=== PATIENT | male | born 1945 | race Caucasian/White ===

== ENCOUNTER → 2019-11-30 | Day surgery (SDC) | payer BC ==
[~2019-11-30] MED LIST: Ketamine 200 MG/20 ML MDV IV ONE; Lactated Ringers 1,000 ML IV SCH; Propofol 200 MG/20 ML SDV IV ONE; fentaNYL 100 MCG/2 ML SDV IV ONE
[2019-11-30 09:09] VITALS: BP 169/82; PULSE 57
--- NOTE | 2019-11-30 11:43 | OR ---
DATE OF OPERATION: 11/30/2019 PREOPERATIVE DIAGNOSIS: HISTORY OF POLYPS. POSTOPERATIVE DIAGNOSIS: HISTORY OF POLYPS. SURGEON: Toni Campos MD PROCEDURE: FULL-LENGTH COLONOSCOPY WITH FORCEPS POLYP BIOPSY X3. ANESTHESIA: MAC. COMPLICATIONS: None. SPECIMEN: Biopsies x3, large villous lesion near hepatic flexure. FINDINGS: 1. Full-length colonoscopy. 2. Mild sigmoid diverticulosis. 3. Large villous lesion just past the hepatic flexure. RECOMMENDATIONS: The patient will need expert consultation given the size of this lesion for attempt at endoscopic removal pending path reports. INDICATIONS: The patient had prior polyps in the past. 8 years ago, he had a large tubulovillous lesion removed from the rectum. A 3-year followup was negative. He is due for a routine 5-year followup scope. DESCRIPTION OF PROCEDURE: The patient was prepped and draped, placed in the left lateral decubitus position. A lubricated Olympus colonoscope was inserted, and with ease advanced to the cecum. Direct visualization of the ileocecal valve and appendiceal orifice was accomplished. The bowel prep was excellent. Upon withdrawal of the scope, the cecum and ascending colon appeared benign. Just past the hepatic flexure on the transverse colon side, the patient had a larger flat villous lesion occupying a large percentage of the haustral fold. This was tucked in and wrapped around it. It is pretty large in size and endoscopic removal was felt to be unsafe in [place]. We elected to do 3 biopsies of this lesion. The rest of the transverse and descending areas were unremarkable. The patient does have scattered diverticula in the sigmoid colon, very minimal in severity. No other polyps, masses, ulceration, or bleeding sites were seen. No vascular abnormalities or signs of colitis. The rectal vault was benign. Retroflexion of the scope in the rectum showed no anal lesions. Air was suctioned. Scope removed without complication. OREN/RADHA /[id number]
== END ==
LOC: CC.SDS 06:56
PROVIDERS: ATTEND Family Medicine
DX: Z12.11 Encounter for screening for malignant neoplasm of colon (principal); D12.3 Benign neoplasm of transverse colon; K57.30 Diverticulosis of large intestine without perforation or abscess without bleeding; E78.5 Hyperlipidemia, unspecified; I10 Essential (primary) hypertension; E11.9 Type 2 diabetes mellitus without complications; N40.0 Benign prostatic hyperplasia without lower urinary tract symptoms; R79.89 Other specified abnormal findings of blood chemistry; Z79.82 Long term (current) use of aspirin; Z87.891 Personal history of nicotine dependence; Z95.1 Presence of aortocoronary bypass graft; Z88.5 Allergy status to narcotic agent; Z79.899 Other long term (current) drug therapy
CPT/HCPCS: 93005; J2704; J3010; J7120

== ENCOUNTER 2020-04-08 08:59 | Emergency (ER) | payer BC ==
[2020-04-08 09:09] VITALS: BP 158/89; PULSE 95
[2020-04-08 09:36] LABS: CHLORIDE,CL 99 mEq/L (98-106); SODIUM,NA 136 mEq/L (136-145)
[2020-04-08] MEDS: Magnesium Citrate Solution 296 ML Bottle PO ONE (10:51)
[2020-04-08] MEDS: Ketorolac 30 MG/ML SDV IVPUSH ONE (10:51)
--- NOTE | 2020-04-08 10:59 | EDM.PDOC ---
<Barbara Ryan - Last Filed: 04/08/20 13:12> ED HPI GENERAL MEDICAL PROBLEM - General Chief Complaint: Abdominal Pain Stated Complaint: ABD PAIN Time Seen by Provider: 04/08/20 09:30 - Related Data Allergies Allergy/AdvReac Type Severity Reaction Status Date / Time codeine Allergy Nausea Verified 04/08/20 09:04 Home Meds: Home Meds Aspirin 81 mg PO DAILY 01/03/15 [History] Lutein/Minerals/Vit A,C & E [Ocuvite] 1 tab PO DAILY 01/03/15 [History] Simvastatin [Zocor] 40 mg PO DAILY 01/03/15 [History] Ubidecarenone [Co Q-10] 10 mg PO DAILY 01/03/15 [History] Metoprolol Tartrate 50 mg PO BID 03/18/15 [History] Multivit-Min/FA/Lycopen/Lutein [Centrum Silver Men Tablet] 1 each PO DAILY 11/30/19 [History] Course - Re-Assessments/Exams Free Text/Narrative Re-Assessment/Exam: 04/08/20 15:04 Patient did have recurring pain. Was given IV Fentanyl which did help. [place] [facility] [place] and need for surgical intervention. Does agree to accept the patient for cholecystectomy. Risks and benefits discussed with patient. risks of transfer include vehicle cr andrew, worsening status and possible . Benefits of transfer include surgical intervention. Risks of non transfer include worsening status and possible . Benefits of non transfer include care close to home. Patient and agree to transfer. Departure - Departure Time of Disposition: 15:09 Disposition: DC/Tfer to Acute Hospital 02 Condition: Fair Clinical Impression: Cholecystitis - Discharge Information *PRESCRIPTION DRUG MONITORING PROGRAM REVIEWED*: No *COPY OF PRESCRIPTION DRUG MONITORING REPORT IN PATIENT EDGARD: No Referrals: Toni Campos MD [Primary Care Provider] - Forms: ED Department Discharge Additional Instructions: [place] [facility] [place] Dr. Mckeon. <Diandra Segal - Last Filed: 04/08/20 20:00> ED HPI GENERAL MEDICAL PROBLEM - General Source of Information: Reports: Patient History Limitations: Reports: No Limitations - History of Present Illness INITIAL COMMENTS - FREE TEXT/NARRATIVE: Amol is a 74 yo male with hx of right colectomy ~ 2 months ago, who presents to the ED with c/o abdominal pain. He reports pain has been present for the last 3 days, but seemed to worsen overnight. He reports at times pain is 10/10. Reports he has been passing some gas, but minimal. Has been belching. Reports his last bowel movement was 3 days ago and it was firm at that time. He did try Miralax x2 as well as prune juice without results. Reports pain is worse to right side. He reports he has not been able to eat/drink since yesterday morning, when he last ate oatmeal. He denies any fever/chills, vomiting, diarrhea, chest pain, shortness of breath. He does report things have been going well since his colectomy. Bowel movements have been normal. Onset Date: 04/05/20 Duration: Getting Worse Location: Reports: Abdomen Quality: Reports: Sharp Severity: Severe Improves with: Reports: None Worsens with: Reports: Movement Associated Symptoms: Reports: Loss of Appetite. Denies: Confusion, Chest Pain, Cough, cough w sputum, Diaphoresis, Fever/Chills, Headaches, Malaise, Nausea/Vomiting, Rash, Seizure, Shortness of Breath, Syncope, Weakness Right Lower Abdomen Pain Score (Numeric/FACES): 10 Past Medical History HEENT History: Reports: Hard of Hearing, Impaired Vision, Other (See Below) Other HEENT History: "swelling in ear that comes and goes, puts drops in" Cardiovascular History: Reports: Bypass, High Cholesterol, Hypertension Gastrointestinal History: Reports: GERD Neurological History: Reports: Concussion - Past Surgical History HEENT Surgical History: Reports: None Cardiovascular Surgical History: Reports: Coronary Artery Bypass GI Surgical History: Reports: Colonoscopy, Polypectomy, Other (See Below) Other GI Surgeries/Procedures: bowel resection- took R) half out Neurological Surgical History: Reports: None Musculoskeletal Surgical History: Reports: Shoulder Replacement, Shoulder Surgery Other Musculoskeletal Surgeries/Procedures:: right shoulder Social & Family History - Family History Family Medical History: No Pertinent Family History - Tobacco Use Tobacco Use Status *Q: Never Tobacco User Second Hand Smoke Exposure: No - Caffeine Use Caffeine Use: Reports: None - Recreational Drug Use Recreational Drug Use: No ED ROS GENERAL - Review of Systems Review Of Systems: Comprehensive ROS is negative, except as noted in HPI. Constitutional: Reports: Decreased Appetite. Denies: Fever, Chills, Malaise, Weakness, Fatigue HEENT: Reports: No Symptoms Respiratory: Reports: No Symptoms Cardiovascular: Reports: No Symptoms Endocrine: Reports: No Symptoms GI/Abdominal: Reports: Abdominal Pain, Constipation, Decreased Appetite, Distension. Denies: Black Stool, Bloody Stool, Diarrhea, Flatus, Nausea, Vomiting : Reports: No Symptoms Musculoskeletal: Reports: No Symptoms Skin: Reports: No Symptoms Neurological: Reports: No Symptoms Psychiatric: Reports: No Symptoms Hematologic/Lymphatic: Reports: No Symptoms Immunologic: Reports: No Symptoms ED EXAM, GI/ABD - Physical Exam Exam: See Below Exam Limited By: No Limitations General Appearance: Alert, WD/WN, Mild Distress Throat/Mouth: Normal Inspection, Normal Lips, Normal Teeth, Normal Gums, Normal Oropharynx, Normal Voice, No Airway Compromise Head: Atraumatic, Normocephalic Neck: Normal Inspection, Supple, Non-Tender, Full Range of Motion Respiratory/Chest: No Respiratory Distress, Lungs Clear, Normal Breath Sounds, No Accessory Muscle Use, Chest Non-Tender Cardiovascular: Normal Peripheral Pulses, Regular Rate, Rhythm, No Edema, No Gallop, No JVD, No Murmur, No Rub GI/Abdominal Exam: Soft, Distended, Tender (RLQ & RUQ). No: Guarding, Rigid, Rebound Back Exam: Normal Inspection, Full Range of Motion. No: CVA Tenderness (L), CVA Tenderness (R) Extremities: Normal Inspection, Normal Range of Motion, Non-Tender, Normal Capillary Refill, No Pedal Edema Neurological: Alert, Oriented, CN II-XII Intact, Normal Cognition, Normal Gait, Normal Reflexes, No Motor/Sensory Deficits Psychiatric: Normal Affect, Normal Mood Skin Exam: Warm, Dry, Intact, Normal Color, No Rash Lymphatic: No Adenopathy Course - Vital Signs Last Recorded V/S: Last Vital Signs Temp 98.6 F 04/08/20 14:47 Pulse 95 04/08/20 09:08 Resp 20 04/08/20 09:08 BP 158/89 H 04/08/20 09:08 Pulse Ox 93 L 04/08/20 09:08 - Orders/Labs/Meds Orders: Active Orders 24 hr Category Date Time Status Abdomen 2V AP Flat Upright [CR] Stat Exams 04/08/20 09:29 Taken Abdomen Ltd [US] Stat Exams 02/23/21 12:14 Taken Abdomen Pelvis w Cont [CT] Stat Exams 04/08/20 10:37 Taken Labs: Laboratory Tests 04/08/20 04/08/20 04/08/20 Range/Units 09:20 09:20 09:23 WBC 13.4 H (5.0-10.0) 10^3/uL RBC 4.72 (4.50-6.00) 10^6/uL Hgb 15.8 (14.0-18.0) g/dL Hct 46.0 (40.0-54.0) % MCV 97.5 H (82.0-94.0) fL MCH 33.5 H (27.0-32.0) pg MCHC 34.3 (33.0-38.0) g/dL RDW Coeff of Korina 14.1 (11.0-15.0) % Plt Count 135 L (150-400) 10^3/uL Neut % (Auto) 78.8 (35-85) % Lymph % (Auto) 9.9 L (10-55) % Clinch % (Auto) 10.5 (0-16) % Eos % (Auto) 0.7 (0-5) % Baso % (Auto) 0.1 (0-3) % Neut # (Auto) 10.52 H (1.80-7.00) 10^3/uL Lymph # (Auto) 1.32 (1.00-4.80) 10^3/uL Clinch # (Auto) 1.40 H (0.00-0.80) 10^3/uL Eos # (Auto) 0.09 (0.00-0.45) 10^3/uL Baso # (Auto) 0.02 10^3/uL Sodium 136 (136-145) mEq/L Potassium 4.6 (3.5-5.0) mEq/L Chloride 99 (98-106) mEq/L Carbon Dioxide 27 (21-32) mmol/L BUN 14 (7-18) mg/dL Creatinine 1.1 (0.7-1.3) mg/dL Est Cr Clr Drug Dosing 61.76 mL/min Estimated GFR (MDRD) > 60 (>=60) mL/min Glucose 159 H D (75-99) mg/dL Calcium 9.1 (8.4-10.1) mg/dL Total Bilirubin 1.7 H (0.0-1.0) mg/dL AST 19 (15-37) U/L ALT 26 (12-78) U/L Alkaline Phosphatase 89 (46-116) U/L C-Reactive Protein 13.4 H (0.2-0.8) mg/dL Total Protein 7.7 (6.4-8.2) g/dL Albumin 3.6 (3.4-5.0) g/dL Amylase 20 L (25-115) U/L Lipase 37 L (73-393) U/L Urine Color Dark yellow (YELLOW) Urine Appearance Clear (CLEAR) Urine pH 5.5 (4.5-8.0) Ur Specific [place] >= 1.030 H (1.003-1.020) Urine Protein 100 H (NEGATIVE) mg/dL Urine Glucose (UA) Negative (NEGATIVE) mg/dL Urine Ketones 80 H (NEGATIVE) mg/dL Urine Occult Blood Negative (NEGATIVE) Urine Nitrite Negative (NEGATIVE) Urine Bilirubin Small H (NEGATIVE) Urine Urobilinogen 0.2 (0.2-1.0) EU/dL Ur Leukocyte Esterase Negative (NEGATIVE) Urine RBC 0-5 (0-5) /HPF Urine WBC 0-5 (0-5) /HPF Meds: Medications Discontinued Medications Generic Name Dose Route Start Last Admin Trade Name Francisco PRN Reason Stop Dose Admin Fentanyl 25 mcg 04/08/20 13:33 04/08/20 13:39 Sublimaze IVPUSH 04/08/20 13:34 25 mcg ONETIME STA Administration Fentanyl 25 mcg 04/08/20 15:18 04/08/20 15:24 Fentanyl IVPUSH 04/08/20 15:19 25 mcg ONETIME ONE Administration Lactated Ringer's 500 mls @ 500 mls/hr 04/08/20 11:06 04/08/20 11:22 Ringers, Lactated IV 04/08/20 12:05 500 mls/hr .BOLUS ONE Administration Lactated Ringer's Confirm 04/08/20 11:35 04/08/20 11:23 Ringers, Lactated Administered 04/08/20 11:36 Not Given Dose 1,000 mls @ as directed .ROUTE .STK-MED ONE Ampicillin Sodium/Sulbactam 100 mls @ 200 mls/hr 04/08/20 12:16 04/08/20 12:19 Sodium 3 gm/ Sodium Chloride IV 04/08/20 12:17 200 mls/hr STAT ONE Administration Iopamidol 100 ml 04/08/20 10:54 04/08/20 11:40 Isovue-370 (76%) IVPUSH 04/08/20 10:55 100 ml ONETIME ONE Administration Ketorolac Tromethamine 30 mg 04/08/20 10:40 04/08/20 10:51 Toradol IVPUSH 04/08/20 10:41 30 mg ONETIME ONE Administration Magnesium Citrate 150 ml 04/08/20 10:24 04/08/20 10:51 Citrate Of Magnesia PO 04/08/20 10:25 Not Given ONETIME ONE Sepsis Event Note (ED) - Evaluation Sepsis Screening Result: No Definite Risk - Focused Exam Vital Signs: Vital Signs Temp Pulse Resp BP Pulse Ox 04/08/20 14:47 98.6 F 04/08/20 09:08 99.2 F 95 20 158/89 H 93 L - Problem List & Annotations (1) Cholecystitis SNOMED Code(s): 15602704 Code(s): K81.9 - CHOLECYSTITIS, UNSPECIFIED Status: Acute - My Orders Last 24 Hours: My Active Orders 04/08/20 09:29 Abdomen 2V AP Flat Upright [CR] Stat 04/08/20 10:37 Abdomen Pelvis w Cont [CT] Stat 04/08/20 12:14 Abdomen Ltd [US] Stat - Assessment/Plan Last 24 Hours: My Active Orders 04/08/20 09:29 Abdomen 2V AP Flat Upright [CR] Stat 04/08/20 10:37 Abdomen Pelvis w Cont [CT] Stat 04/08/20 12:14 Abdomen Ltd [US] Stat Assessment:: Cholecystitis Plan: As above. Noted by my colleague, who resumed care of patient.
[2020-04-08] MEDS: Lactated Ringers 500 ML IV ONE (11:22)
[2020-04-08] MEDS: Lactated Ringers 1,000 ML ONE (11:23)
[2020-04-08] MEDS: Iopamidol 755 Mg/ML 100 ML Bottle IVPUSH ONE (11:40)
[2020-04-08] MEDS: Ampicillin/Sulbactam Na 3 GM in Sodium Chloride 0.9% 100 ML IV ONE (12:19)
[2020-04-08] MEDS: fentaNYL 100 MCG/2 ML SDV IVPUSH STA (13:39)
[2020-04-08] MEDS: fentaNYL 50 MCG/ML SDV IVPUSH ONE (15:24)
== END 2020-04-08 15:30 | disposition critical access hospital (66) ==
LOC: CC.ED 08:59
DX: K81.9 Cholecystitis, unspecified (principal); I10 Essential (primary) hypertension; E78.00 Pure hypercholesterolemia, unspecified; Z88.5 Allergy status to narcotic agent; Z79.82 Long term (current) use of aspirin; Z79.899 Other long term (current) drug therapy
CPT/HCPCS: 36415; 74019; 74177; 76705; 80053; 81001; 82150; 83690; 85025; 86140; 96365; 96375; 96376; 99285-25; J0295; J1885; J3010; J7120; Q9967

== ENCOUNTER 2020-05-30 21:03 | Observation (INO) | payer BC ==
[2020-05-30] MEDS ORDERED: cloNIDine 0.1 MG Tab PO ONE (21:36)
--- NOTE | 2020-05-30 21:44 | EDM.PDOC ---
ED HPI GENERAL MEDICAL PROBLEM - General Chief Complaint: General Stated Complaint: high BP Time Seen by Provider: 05/30/20 21:21 Source of Information: Reports: Patient History Limitations: Reports: No Limitations - History of Present Illness INITIAL COMMENTS - FREE TEXT/NARRATIVE: Amol is a 74 year old male who presents to ER with concerns of high blood pressure today. States has been having issues with his blood pressure over the last couple of months. Has been on metoprolol for quite some time but had Norvasc added in the last couple of months and then increased by cardiology. He relates then had issues with increased swelling in his legs so they stopped the Norvasc and put him on Lisinopril 10 mg daily. Relates that his blood pressure has not "been normal" but running around 150/90 or so. He started noting a headache and upper back pain this afternoon while in [place]. Did take Tylenol around 1630 which did help. Took his blood pressure when he got home and it wouldn't register initially and when did, was 220 systolic. He took his usual dose of metoprolol this evening but his blood pressure has not improved so was "worried about what could happen". Denies any chest pain or shortness of breath. Headache and back pain has improved. No nausea/vomiting. Does admit that since his gallbladder surgery, he does get "gas pains at times". No fe vers. No urinary concerns. Onset: Today Duration: Hour(s):, Improving Location: Reports: Head, Neck, Back Quality: Reports: Ache Severity: Mild Improves with: Reports: Medication Associated Symptoms: Denies: Confusion, Chest Pain, Cough, Fever/Chills, Loss of Appetite, Malaise, Nausea/Vomiting, Shortness of Breath Treatments POT PULLER: Reports: Acetaminophen Generalized Pain Score (Numeric/FACES): 3 - Related Data Allergies Allergy/AdvReac Type Severity Reaction Status Date / Time codeine Allergy Nausea Verified 05/30/20 21:08 Home Meds: Home Meds Aspirin 81 mg PO DAILY 01/03/15 [History] Lutein/Minerals/Vit A,C & E [Ocuvite] 1 tab PO DAILY 01/03/15 [History] Simvastatin [Zocor] 40 mg PO DAILY 01/03/15 [History] Ubidecarenone [Co Q-10] 10 mg PO DAILY 01/03/15 [History] Metoprolol Tartrate 50 mg PO BID 03/18/15 [History] Multivit-Min/FA/Lycopen/Lutein [Centrum Silver Men Tablet] 1 each PO DAILY 11/30/19 [History] Tamsulosin HCl 0.4 mg PO BEDTIME 05/30/20 [History] lisinopriL [Lisinopril] 10 mg PO DAILY 05/30/20 [History] Past Medical History HEENT History: Reports: Hard of Hearing, Impaired Vision, Other (See Below) Other HEENT History: "swelling in ear that comes and goes, puts drops in" Cardiovascular History: Reports: Bypass, High Cholesterol, Hypertension Gastrointestinal History: Reports: GERD Neurological History: Reports: Concussion - Infectious Disease History Infectious Disease History: Reports: Chicken Pox - Past Surgical History HEENT Surgical History: Reports: None Cardiovascular Surgical History: Reports: Coronary Artery Bypass GI Surgical History: Reports: Colonoscopy, Polypectomy, Other (See Below) Other GI Surgeries/Procedures: bowel resection- took R) half out Neurological Surgical History: Reports: None Musculoskeletal Surgical History: Reports: Shoulder Replacement, Shoulder Surgery Other Musculoskeletal Surgeries/Procedures:: right shoulder Social & Family History - Family History Family Medical History: No Pertinent Family History - Tobacco Use Tobacco Use Status *Q: Former Tobacco User Used Tobacco, but Quit: Yes Month/Year Tobacco Last Used: 25 years ago - Caffeine Use Caffeine Use: Reports: Coffee - Recreational Drug Use Recreational Drug Use: No ED ROS GENERAL - Review of Systems Review Of Systems: See Below Constitutional: Denies: Fever, Chills, Malaise, Weakness, Decreased Appetite HEENT: Denies: Ear Pain, Throat Pain, Vertigo, Vision Change Respiratory: Denies: Shortness of Breath, Cough Cardiovascular: Reports: Edema. Denies: Chest Pain, Lightheadedness Endocrine: Denies: Fatigue GI/Abdominal: Denies: Abdominal Pain, Nausea, Vomiting : Reports: No Symptoms Musculoskeletal: Reports: Neck Pain, Back Pain Skin: Reports: No Symptoms Neurological: Reports: Headache ED EXAM, GENERAL - Physical Exam Exam: See Below Exam Limited By: No Limitations General Appearance: Alert, WD/WN, No Apparent Distress Ears: Normal External Exam, Normal TMs Nose: Normal Inspection, Normal Mucosa, No Blood Throat/Mouth: Normal Inspection, Normal Oropharynx Head: Normocephalic Neck: Normal Inspection, Supple, Non-Tender Respiratory/Chest: No Respiratory Distress, Lungs Clear, Normal Breath Sounds Cardiovascular: Regular Rate, Rhythm GI/Abdominal: Normal Bowel Sounds, Soft, Non-Tender Extremities: Normal Inspection, Pedal Edema (1+) Neurological: Alert, Oriented Skin Exam: Warm, Dry Course - Vital Signs Last Recorded V/S: Last Vital Signs Temp 97.4 F 05/30/20 21:04 Pulse 71 05/30/20 21:27 Resp 18 05/30/20 21:27 BP 204/111 H 05/30/20 21:44 Pulse Ox 99 05/30/20 21:27 - Orders/Labs/Meds Orders: Active Orders 24 hr Category Date Time Status Patient Status Manage Transfer [TRANSFER] Routine ADT 05/30/20 22:23 Active EKG Documentation Completion [RC] STAT Care 05/30/20 21:33 Active Resuscitation Status Routine Resus Stat 05/30/20 22:24 Ordered Medication Orders Aspirin (Aspirin 81 Mg Tab.Chew) 81 mg PO DAILY JAMES Lisinopril (Lisinopril 10 Mg Tab) 10 mg PO DAILY JAMES Metoprolol Tartrate (Metoprolol Tartrate 50 Mg Tab) 50 mg PO BID JAMES Non-Formulary Medication (Ubidecarenone [Co Q-10]) 10 mg PO DAILY JAMES Simvastatin (Simvastatin 40 Mg Tab) 40 mg PO DAILY JAMES Tamsulosin HCl (Tamsulosin 0.4 Mg Cap.Er) 0.4 mg PO BEDTIME JAMES Labs: Laboratory Tests 05/30/20 05/30/20 Range/Units 21:50 21:50 WBC 6.2 (5.0-10.0) 10^3/uL RBC 4.72 (4.50-6.00) 10^6/uL Hgb 15.5 (14.0-18.0) g/dL Hct 45.7 (40.0-54.0) % MCV 96.8 H (82.0-94.0) fL MCH 32.8 H (27.0-32.0) pg MCHC 33.9 (33.0-38.0) g/dL RDW Coeff of Korina 13.6 (11.0-15.0) % Plt Count 139 L (150-400) 10^3/uL Neut % (Auto) 53.7 (35-85) % Lymph % (Auto) 34.7 (10-55) % Sunflower % (Auto) 8.3 (0-16) % Eos % (Auto) 2.8 (0-5) % Baso % (Auto) 0.5 (0-3) % Neut # (Auto) 3.32 (1.80-7.00) 10^3/uL Lymph # (Auto) 2.14 (1.00-4.80) 10^3/uL Sunflower # (Auto) 0.51 (0.00-0.80) 10^3/uL Eos # (Auto) 0.17 (0.00-0.45) 10^3/uL Baso # (Auto) 0.03 10^3/uL Sodium 140 (136-145) mEq/L Potassium 3.8 (3.5-5.0) mEq/L Chloride 104 (98-106) mEq/L Carbon Dioxide 30 (21-32) mmol/L BUN 15 (7-18) mg/dL Creatinine 1.1 (0.7-1.3) mg/dL Est Cr Clr Drug Dosing 61.76 mL/min Estimated GFR (MDRD) > 60 (>=60) mL/min Glucose 181 H (75-99) mg/dL Calcium 8.9 (8.4-10.1) mg/dL Total Bilirubin 0.4 (0.0-1.0) mg/dL AST 21 (15-37) U/L ALT 42 (12-78) U/L Alkaline Phosphatase 94 (46-116) U/L Troponin I 0.108 H (0.00-0.06) ng/mL NT-Pro-B Natriuret Pep 383 (0-1000) pg/mL Total Protein 7.0 (6.4-8.2) g/dL Albumin 3.5 (3.4-5.0) g/dL Meds: Medications Generic Name Dose Route Start Last Admin Trade Name Freq PRN Reason Stop Dose Admin Aspirin 81 mg 05/31/20 08:00 Aspirin [address] Tab.Chew PO DAILY [facility] Lisinopril 10 mg 05/31/20 08:00 Lisinopril 10 [address] Tab [address] [facility] Metoprolol Tartrate 50 mg 05/31/20 08:00 Metoprolol Tartrate 50 [address] Tab [address] [facility] Non-Formulary Medication 10 mg 05/31/20 08:00 Ubidecarenone [Co Q-10] PO DAILY [facility] Simvastatin 40 mg 05/31/20 08:00 Simvastatin 40 Mg Tab PO DAILY JAMES Tamsulosin HCl 0.4 mg 05/31/20 20:00 Tamsulosin 0.4 Mg Cap.Er PO BEDTIME JAMES Discontinued Medications Generic Name Dose Route Start Last Admin Trade Name Francisco PRN Reason Stop Dose Admin Clonidine HCl 0.1 mg 05/30/20 21:36 05/30/20 21:44 Clonidine 0.1 Mg Tab PO 05/30/20 21:37 0.1 mg PREPRO ONE Administration - Re-Assessments/Exams Free Text/Narrative Re-Assessment/Exam: 05/30/20 22:00 Troponin is indeterminate, blood pressure mildly improved at 197/93. Will admit and observe cardiac status, repeat troponin in 4 hours. Departure - Departure Time of Disposition: 22:44 Disposition: Refer to Observation Condition: Undetermined Clinical Impression: Hypertensive urgency, Elevated troponin - Discharge Information *PRESCRIPTION DRUG MONITORING PROGRAM REVIEWED*: No *COPY OF PRESCRIPTION DRUG MONITORING REPORT IN PATIENT EDGARD: No Sepsis Event Note (ED) - Evaluation Sepsis Screening Result: No Definite Risk - Focused Exam Vital Signs: Vital Signs Temp Pulse Resp BP BP Pulse Ox 05/30/20 21:44 204/111 H 05/30/20 21:27 71 18 204/111 H 99 05/30/20 21:04 97.4 F 68 18 218/99 H 96 - Problem List & Annotations (1) Elevated troponin SNOMED Code(s): 988443047, 836519607, 235224827 Code(s): R77.8 - OTHER SPECIFIED ABNORMALITIES OF PLASMA PROTEINS Status: Acute Priority: High Current Visit: Yes (2) Hypertensive urgency SNOMED Code(s): 378936983 Code(s): I16.0 - HYPERTENSIVE URGENCY Status: Acute Priority: High Current Visit: Yes - Problem List Review Problem List Initiated/Reviewed/Updated: Yes - My Orders Last 24 Hours: My Active Orders 05/30/20 21:33 EKG Documentation Completion [RC] STAT 05/30/20 22:23 Patient Status Manage Transfer [TRANSFER] Routine 05/30/20 22:24 Resuscitation Status Routine - Assessment/Plan Admission H&P: Please use this note as an admission H&P Last 24 Hours: My Active Orders 05/30/20 21:33 EKG Documentation Completion [RC] STAT 05/30/20 22:23 Patient Status Manage Transfer [TRANSFER] Routine 05/30/20 22:24 Resuscitation Status Routine Assessment:: Hypertensive Urgency Elevated troponin Plan: Admit to observation. Repeat troponin in 4 hours. Monitor telemetry. Patient agrees with plan.
[2020-05-30 22:12] LABS: CHLORIDE,CL 104 mEq/L (98-106); SODIUM,NA 140 mEq/L (136-145)
[2020-05-30] MEDS ORDERED: Sodium Chloride 0.9% 10 ML Syringe FLUSH PRN (23:09)
[2020-05-30] MEDS ORDERED: Ondansetron 4 MG Tab.DIS PO PRN (23:09)
[2020-05-30] MEDS ORDERED: Enoxaparin 40 MG/0.4 ML Syringe SUBCUT SCH (23:09)
[2020-05-30] MEDS ORDERED: Acetaminophen 325 MG Tab PO PRN (23:09)
[2020-05-31 07:15] LABS: CHLORIDE,CL 106 mEq/L (98-106); SODIUM,NA 140 mEq/L (136-145)
[2020-05-31] MEDS ORDERED: UBIDECARENONE 10 MG PO SCH (08:00)
[2020-05-31] MEDS ORDERED: Aspirin 81 MG Tab.Chew PO SCH (08:00)
[2020-05-31] MEDS ORDERED: Lisinopril 10 MG Tab PO SCH (08:00)
[2020-05-31] MEDS ORDERED: Metoprolol Tartrate 50 MG Tab PO SCH (08:00)
[2020-05-31] MEDS ORDERED: Simvastatin 40 MG Tab PO SCH (08:00)
[2020-05-31] MEDS ORDERED: Metoprolol Tartrate 50 MG Tab PO ONE (08:14)
[2020-05-31] MEDS ORDERED: Lisinopril 10 MG Tab PO ONE ×2 (08:14→08:29)
[2020-05-31] MEDS ORDERED: Aspirin 325 MG Tab.EC PO ONE (08:29)
[2020-05-31] MEDS ORDERED: Heparin Sodium/0.45% NaCl 500 ML IV SCH (08:30)
[2020-05-31] MEDS ORDERED: Heparin Sodium 5,000 Units/ML Vial IVPUSH ONE (08:34)
[2020-05-31] MEDS ORDERED: Lisinopril 10 MG Tab ONE (08:48)
--- NOTE | 2020-05-31 09:01 | PCM.DCSUM1 ---
Discharge Summary - Hospital Course Free Text/Narrative:: mAol is a 74 year old male who presented to ER with complaints of a headache, upper back and neck pain and noted his blood pressure at home to be high. Initially when checked at home, systolic was 220. Took his Metoprolol without much improvement. Took Tylenol and that did help his headache and back pain. Presented to ER due to persistent concerns. Has been having issues with his blood pressure since colectomy last winter. Was placed on Norvasc at that time. Had a follow up visit with his tire care manager in February and was doing well. In March, had his gallbladder removed and his Norvasc was increased to 10 mg daily. Started noting increased edema over the last month or so, Norvasc was stopped and was started on Lisinopril. States his typical blood pressure has been running around 150s/90s. In ER, patient's blood pressure was 218/99 initially. Was given Clonidine 0.1 mg. Labs noted a troponin of .108, indeterminate. Admitted for serial enzymes and following of blood pressure. Patient has no chest pain or shortness of breath. No diaphoresis. No nausea or vomiting. Diagnosis: Stroke: No Modified Harrison Scale: No Symptoms at All Modified Harrison Scale Score: 0 - Discharge Data Discharge Date: 05/31/20 Discharge Disposition: DC/Tfer to Acute Hospital 02 Condition: Stable - Referral to Home Health Primary Care Physician: Toni Campos MD - Discharge Diagnosis/Problem(s) (1) Elevated troponin SNOMED Code(s): 415217067, 819215814, 655406150 ICD Code: R77.8 - OTHER SPECIFIED ABNORMALITIES OF PLASMA PROTEINS Status: Acute Priority: High (2) Hypertensive urgency SNOMED Code(s): 505483897 ICD Code: I16.0 - HYPERTENSIVE URGENCY Status: Acute Priority: High - Patient Summary/Data Complications: none Hospital Course: Patient is resting comfortably this am. States headache and backache are improved. Troponin was repeated at 0200, increased to 0.417, no EKG changes. Given tylenol during the night for a headache. Labs repeated this am, troponin now 1.052, indicating acute NC, non-STEMI. No EKG changes noted. Discussed with patient, had 2 vessel CABG 5 years ago and has done well since that time. No recent stress tests. Contacted tire care manager, Dr. Tee, at [facility]. Advised to transfer. Discussed with Dr. Ardon, hospitalist. Recommended giving additional dose of Lisinopril 10 mg, full aspirin and starting Heparin drip. If blood pressure does not improve, will give Hydralazine IV. [facility] is awaiting discharges before available bed, will transfer when able. - Patient Instructions Diet: NPO Activity: As Tolerated Other/Special Instructions: Transfer ALS to [facility], accepting physician Dr. Ardon - Discharge Plan *PRESCRIPTION DRUG MONITORING PROGRAM REVIEWED*: No *COPY OF PRESCRIPTION DRUG MONITORING REPORT IN PATIENT EDGARD: No Home Medications: Home Meds Aspirin 81 mg PO DAILY 01/03/15 [History] Lutein/Minerals/Vit A,C & E [Ocuvite] 1 tab PO DAILY 01/03/15 [History] Simvastatin [Zocor] 40 mg PO DAILY 01/03/15 [History] Ubidecarenone [Co Q-10] 10 mg PO DAILY 01/03/15 [History] Metoprolol Tartrate 50 mg PO BID 03/18/15 [History] Multivit-Min/FA/Lycopen/Lutein [Centrum Silver Men Tablet] 1 each PO DAILY 11/30/19 [History] Tamsulosin HCl 0.4 mg PO BEDTIME 05/30/20 [History] lisinopriL [Lisinopril] 10 mg PO DAILY 05/30/20 [History] Forms: ED Department Discharge Referrals: Toni Campos MD [Primary Care Provider] - - Discharge Summary/Plan Comment DC Time >30 min.: No - General Info Date of Service: 05/31/20 Admission Dx/Problem (Free Text: Elevated troponin Hypertensive Urgency Functional Status: Reports: Pain Controlled, Ambulating - Review of Systems General: Denies: Fever, Weakness, Fatigue HEENT: Reports: No Symptoms Pulmonary: Denies: Shortness of Breath Cardiovascular: Reports: Edema. Denies: Chest Pain, Lightheadedness Gastrointestinal: Denies: Abdominal Pain, Nausea, Vomiting Genitourinary: Reports: No Symptoms Musculoskeletal: Reports: Neck Pain, Back Pain (improved) Skin: Reports: No Symptoms Neurological: Reports: Headache (improved) - Patient Data Vitals - Most Recent: Last Vital Signs Temp 97.2 F 05/31/20 04:00 Pulse 70 05/31/20 08:24 Resp 18 05/31/20 04:00 BP 188/101 H 05/31/20 08:44 Pulse Ox 96 05/31/20 04:00 Weight - Most Recent: 244 lb Lab Results - Last 24 hrs: Laboratory Results - last 24 hr 05/30/20 05/30/20 05/31/20 Range/Units 21:50 21:50 02:00 WBC 6.2 (5.0-10.0) 10^3/uL RBC 4.72 (4.50-6.00) 10^6/uL Hgb 15.5 (14.0-18.0) g/dL Hct 45.7 (40.0-54.0) % MCV 96.8 H (82.0-94.0) fL MCH 32.8 H (27.0-32.0) pg MCHC 33.9 (33.0-38.0) g/dL RDW Coeff of Korina 13.6 (11.0-15.0) % Plt Count 139 L (150-400) 10^3/uL Neut % (Auto) 53.7 (35-85) % Lymph % (Auto) 34.7 (10-55) % [place] % (Auto) 8.3 (0-16) % Eos % (Auto) 2.8 (0-5) % Baso % (Auto) 0.5 (0-3) % Neut # (Auto) 3.32 (1.80-7.00) 10^3/uL Lymph # (Auto) 2.14 (1.00-4.80) 10^3/uL [place] # (Auto) 0.51 (0.00-0.80) 10^3/uL Eos # (Auto) 0.17 (0.00-0.45) 10^3/uL Baso # (Auto) 0.03 10^3/uL Sodium 140 (136-145) mEq/L Potassium 3.8 (3.5-5.0) mEq/L Chloride 104 (98-106) mEq/L Carbon Dioxide 30 (21-32) mmol/L BUN 15 (7-18) mg/dL Creatinine 1.1 (0.7-1.3) mg/dL Est Cr Clr Drug Dosing 61.76 mL/min Estimated GFR (MDRD) > 60 (>=60) mL/min Glucose 181 H (75-99) mg/dL Calcium 8.9 (8.4-10.1) mg/dL Total Bilirubin 0.4 (0.0-1.0) mg/dL AST 21 (15-37) U/L ALT 42 (12-78) U/L Alkaline Phosphatase 94 (46-116) U/L Troponin I 0.108 H 0.417 H (0.00-0.06) ng/mL NT-Pro-B Natriuret Pep 383 (0-1000) pg/mL Total Protein 7.0 (6.4-8.2) g/dL Albumin 3.5 (3.4-5.0) g/dL 05/31/20 05/31/20 Range/Units 07:01 07:01 WBC 5.1 (5.0-10.0) 10^3/uL RBC 4.65 (4.50-6.00) 10^6/uL Hgb 15.5 (14.0-18.0) g/dL Hct 44.6 (40.0-54.0) % MCV 95.9 H (82.0-94.0) fL MCH 33.3 H (27.0-32.0) pg MCHC 34.8 (33.0-38.0) g/dL RDW Coeff of Korina 13.7 (11.0-15.0) % Plt Count 135 L (150-400) 10^3/uL Neut % (Auto) 40.2 (35-85) % Lymph % (Auto) 44.5 (10-55) % [place] % (Auto) 11.6 (0-16) % Eos % (Auto) 3.3 (0-5) % Baso % (Auto) 0.4 (0-3) % Neut # (Auto) 2.05 (1.80-7.00) 10^3/uL Lymph # (Auto) 2.27 (1.00-4.80) 10^3/uL [place] # (Auto) 0.59 (0.00-0.80) 10^3/uL Eos # (Auto) 0.17 (0.00-0.45) 10^3/uL Baso # (Auto) 0.02 10^3/uL Sodium 140 (136-145) mEq/L Potassium 3.8 (3.5-5.0) mEq/L Chloride 106 (98-106) mEq/L Carbon Dioxide 25 (21-32) mmol/L BUN 14 (7-18) mg/dL Creatinine 0.9 (0.7-1.3) mg/dL Est Cr Clr Drug Dosing 75.48 mL/min Estimated GFR (MDRD) > 60 (>=60) mL/min Glucose 108 H D (75-99) mg/dL Calcium 8.5 (8.4-10.1) mg/dL Total Bilirubin (0.0-1.0) mg/dL AST (15-37) U/L ALT (12-78) U/L Alkaline Phosphatase (46-116) U/L Troponin I 1.052 H (0.00-0.06) ng/mL NT-Pro-B Natriuret Pep (0-1000) pg/mL Total Protein (6.4-8.2) g/dL Albumin (3.4-5.0) g/dL Med Orders - Current: Current Medications Acetaminophen (Acetaminophen 325 Mg Tab) 650 mg PO Q4H PRN PRN Reason: Pain (Mild 1-3)/fever Last Admin: 05/30/20 23:52 Dose: 650 mg Documented by: Aspirin (Aspirin 81 Mg Tab.Chew) 81 mg PO DAILY [facility] Enoxaparin Sodium (Enoxaparin 40 Mg/0.4 Ml Syringe) 40 mg SUBCUT BEDTIME JAMES Last Admin: 05/30/20 23:51 Dose: 40 mg Documented by: Heparin Sodium/Sodium Chloride (Heparin 25,000 Units In 1/2 Ns 500 Ml) 500 mls @ 20 mls/hr IV TITRATE JAMES; Protocol Lisinopril (Lisinopril 10 Mg Tab) 10 mg PO DAILY [facility] Metoprolol Tartrate (Metoprolol Tartrate 50 Mg Tab) 50 mg PO BID [facility] Non-Formulary Medication (Ubidecarenone [Co Q-10]) 10 mg PO DAILY [facility] Ondansetron HCl (Ondansetron 4 Mg Tab.Dis) 4 mg PO Q4H PRN PRN Reason: nausea, able to take PO Simvastatin (Simvastatin 40 Mg Tab) 40 mg PO DAILY [facility] Sodium Chloride (Sodium Chloride 0.9% 10 Ml Syringe) 10 ml FLUSH ASDIRECTED PRN PRN Reason: Keep Vein Open Tamsulosin HCl (Tamsulosin 0.4 Mg Cap.Er) 0.4 mg PO BEDTIME JAMES Discontinued Medications Aspirin (Aspirin 325 Mg Tab.Ec) 325 mg PO ONETIME ONE Stop: 05/31/20 08:30 Last Admin: 05/31/20 08:43 Dose: 325 mg Documented by: Clonidine HCl (Clonidine 0.1 Mg Tab) 0.1 mg PO PREPRO ONE Stop: 05/30/20 21:37 Last Admin: 05/30/20 21:44 Dose: 0.1 mg Documented by: Heparin Sodium (Porcine) (Heparin Sodium 5,000 Units/Ml Vial) 4,000 units IVPUSH ONETIME ONE Stop: 05/31/20 08:35 Lisinopril (Lisinopril 10 Mg Tab) 10 mg PO ONETIME ONE Stop: 05/31/20 08:15 Last Admin: 05/31/20 08:28 Dose: 10 mg Documented by: Lisinopril (Lisinopril 10 Mg Tab) 10 mg PO ONETIME ONE Stop: 05/31/20 08:30 Last Admin: 05/31/20 08:44 Dose: 10 mg Documented by: Metoprolol Tartrate (Metoprolol Tartrate 50 Mg Tab) 50 mg PO ONETIME ONE Stop: 05/31/20 08:15 Last Admin: 05/31/20 08:24 Dose: 50 mg Documented by: - Exam General: Reports: Alert, Oriented HEENT: Reports: Mucous Membr. Moist/[place]ck: Reports: Supple Lungs: Reports: Clear to Auscultation, Normal Respiratory Effort Cardiovascular: Reports: Regular Rate, Regular Rhythm GI/Abdominal Exam: Normal Bowel Sounds, Soft, Non-Tender Extremities: Normal Inspection, No Pedal Edema Skin: Reports: Warm, Dry Neurological: Reports: No New Focal Deficit
[2020-05-31 09:12] LABS: PTT,PARTIAL THROMBOPLSTIN TIME 26.7 SEC (23.2-32.3)
[2020-05-31] MEDS ORDERED: hydrALAZINE 20 MG/ML SDV IVPUSH ONE ×2 (10:51→12:05)
[2020-05-31 11:44] VITALS: BP 167/92; PULSE 54
[2020-05-31] MEDS ORDERED: Tamsulosin 0.4 MG Cap.ER PO SCH (20:00)
== END 2020-05-31 13:25 ==
LOC: CC.ED 21:03 → CC.MS 22:23 → UNDOADMOB 22:28 → CC.MS 22:28 → UNDODISOB 05-31 13:25
PROVIDERS: ADMIT Physician Assistant Medical; ATTEND Family Medicine
DX: I16.0 Hypertensive urgency (principal); E78.00 Pure hypercholesterolemia, unspecified; R77.8 Other specified abnormalities of plasma proteins; Z88.6 Allergy status to analgesic agent; Z79.82 Long term (current) use of aspirin; Z79.899 Other long term (current) drug therapy; Z87.891 Personal history of nicotine dependence; Z95.1 Presence of aortocoronary bypass graft; Z98.890 Other specified postprocedural states
CPT/HCPCS: 36415; 71046; 80048; 80053; 83880; 84484; 85025; 85610; 85730; 93005; 96372; 96374; 96375; 96376; A9270-GY; G0378; J0360; J1644; J1650